=== PATIENT | female | born 1945 | race Caucasian/White ===

== ENCOUNTER 2016-10-04 13:27 | Inpatient (IN) | payer OTHER ==
[~2016-10-04] VITALS: Ht 172.7 cm; Wt 70.8 kg
[2016-10-04 13:35] VITALS: BP 113/80; PULSE 82; RESP 16; TEMP 97.2; O2SAT 97
--- NOTE | 2016-10-04 13:51 | NUR ---
ER at bedside examining patient.
--- NOTE | 2016-10-04 13:58 | NUR ---
MEDICATED WITH MOTRIN 600 MG FOR LEFT GROIN PAIN, SCALE 4/10.
[2016-10-04] MEDS ORDERED: IBUPROFEN 600 MG TABLET PO ONE (14:00)
--- NOTE | 2016-10-04 14:00 | NUR ---
TRANSPORTED TO RADIOLOGY DEPT.
--- NOTE | 2016-10-04 14:12 | NUR ---
RETURNED TO ROOM 6. COLD PACKS APPLIED TO LEFT GROIN AND RIGHT ANKLE.
--- NOTE | 2016-10-04 15:10 | NUR ---
PORTABLE CHEST XRAY DONE.
[2016-10-04] MEDS ORDERED: HYDROcodone/ACETAMIN 5-325 MG TAB (NORCO/ VICODIN) PO ONE (15:15)
[2016-10-04 15:17] LABS: BASOPHILS # (AUTO) 0.1 K/uL (0.0-0.2); BASOPHILS % (AUTO) 0.8 % (0.0-2.0); EOSINOPHILS # (AUTO) 0.2 K/uL (0.0-0.4); EOSINOPHILS % (AUTO) 1.7 % (0.0-4.0); HEMATOCRIT 40.8 % (36-48); HEMOGLOBIN 13.6 g/dL (12.0-16.0); LYMPHOCYTES # (AUTO) 1.7 K/uL (1.0-5.5); LYMPHOCYTES % (AUTO) 13.4 % (20.5-51.5); MEAN CORPUSCULAR HEMOGLOBIN 29 pg (27-31); MEAN CORPUSCULAR HGB CONC 34 % (32-36); MEAN CORPUSCULAR VOLUME 87 fL (79.0-98.0); MONOCYTES # (AUTO) 0.6 K/uL (0.0-1.0); MONOCYTES % (AUTO) 4.8 % (1.7-9.3); NEUTROPHILS # (AUTO) 10.1 K/uL (1.8-7.7); NEUTROPHILS % (AUTO) 79.3 % (40.0-70.0); PLATELET COUNT (AUTO) 173 K/uL (130-430); RED BLOOD CELL COUNT(AUTO) 4.67 MIL/uL (4.2-6.2); RED CELL DISTRIBUTION WIDTH 13.7 % (9.0-15.0); WHITE BLOOD COUNT (AUTO) 12.8 K/uL (4.8-10.8)
[2016-10-04 15:28] LABS: CALCIUM 8.8 mg/dL (8.4-11.0); CREATININE 1.11 mg/dL (0.55-1.30); POTASSIUM 3.7 mmol/L (3.5-5.1)
[2016-10-04 15:29] LABS: INR 0.9 (0.8-1.2); PROTHROMBIN TIME 9.9 SECS (9.5-12.5)
[2016-10-04] MEDS ORDERED: ONDANSETRON HCL 4 MG/2 ML VIAL IVP PRN (15:30)
[2016-10-04] MEDS ORDERED: MORPHINE 4 MG/ML INJ. SYRINGE IVP PRN (15:30)
[2016-10-04 15:32] LABS: ALBUMIN 3.7 g/dL (3.4-4.8); TOTAL BILIRUBIN 0.3 mg/dL (0.0-1.0); TOTAL PROTEIN, SERUM 6.8 g/dL (6.4-8.3)
--- NOTE | 2016-10-04 15:50 | NUR ---
# 20 gauge angiocath placed to LEFT A/C. Use of aseptic technique. Opsite placed over site. Blood return noted. Blood for lab drawn from site. Flushed with 10 cc of normal saline. No evidence of infiltration noted. Patient tolerated well.
[2016-10-04 16:09] LABS: BILIRUBIN,URINE NEGATIVE (NEGATIVE); CLARITY/URINE SL CLOUDY (CLEAR); COLOR,URINE YELLOW (YELLOW); GLUCOSE,URINE NEGATIVE (NEGATIVE); KETONES,URINE NEGATIVE (NEGATIVE); LEUKOCYTE ESTERASE ,URINE 1+ (NEGATIVE); NITRITE, URINE NEGATIVE (NEGATIVE); PROTEIN URINE NEGATIVE (NEGATIVE); UROBILINOGEN,URINE 0.2 (0.2-1.0)
--- NOTE | 2016-10-04 16:26 | NUR ---
ADMISSION NOTE Received patient from ER via chhaya, received report from ED RN. Patient admitted with diagnosis of LEFT HIP FRACTURE. Patient oriented to hospital routine, call light, toileting and safety-patient verbalized understanding.
[2016-10-04 16:33] VITALS: BP 110/69; PULSE 75; RESP 18; TEMP 97.5; O2SAT 98
--- NOTE | 2016-10-04 16:35 | NUR ---
TO [facility]. TRANSFERRED CARE TO JEB WILLSON. MOVED PT VIA BED TO ROOM 124-A. ALL PERSONAL BELONGINGS WITH PT.
--- NOTE | 2016-10-04 16:46 | NUR ---
CONSULT FOR DR. KEYES CALLED SPOKE TO ARA DIALED [phone]
--- NOTE | 2016-10-04 17:10 | NUR ---
pathology laboratory director notes Report given by admission nurse ANAMIKA. Assessment done and documented. Educated to call light and put with in reach. Educated on NPO diet. Bed in lowest position.
[2016-10-04 17:51] LABS: BLOOD, URINE TRACE (NEGATIVE)
[2016-10-04 17:55] LABS: BACTERIA,URINE MODERATE /HPF (None Seen); RBC,URINE 0-3 /HPF (0-3)
[2016-10-04 17:56] LABS: MUCUS,URINE None Seen /LPF (None Seen)
[2016-10-04] MEDS: 0.45% NACL 1,000 ML IV SCH (18:26)
--- NOTE | 2016-10-04 18:30 | NUR ---
RN closing note Patient connected to IV fluid ordered normal saline 0.45% at a rate of 100 ml as per order. Patient is awake and sitting in bed. Patient states pain is 1/10. Call light is with in reach. Educated on pain management.Bed is in the lowest position.
--- NOTE | 2016-10-04 18:58 | NUR ---
PAGED: SPOKE WITH DR VILLA AND VERIFIED MEDS ORDER FOR IV PAIN MEDS PARAMETER,MD TO PUT THE ORDERS IN.
--- NOTE | 2016-10-04 19:00 | NUR ---
Report received from Dayshift Nurse patient in bed visiting with family and friends. Patient denies pain or discomfort at this time will continue to monitor for changes.
[2016-10-04] MEDS ORDERED: MORPHINE 2 MG/ML INJ. SYRINGE IVP PRN (20:00)
[2016-10-04] MEDS: NORMAL SALINE 5 ML DISP.SYRIN IVF SCH (21:06)
[2016-10-04 21:08] VITALS: BP 122/69; PULSE 72; RESP 20; TEMP 98.5; O2SAT 93
[2016-10-04] MEDS: cefTRIAXone 1 GM in D5W 50 ML IV SCH (21:15)
--- NOTE | 2016-10-04 23:10 | NUR ---
RESUME CARE Received the report from RUPINDER Stuart. Patient resting on the bed. No acute distress. Respiration even and unlabored. AO x 4. Denied of pain. Skin warm and dry to touch. IV intact to LAC, no redness, no swelling, no drainage. On 1/2NS at 100ml/hr, infusing well. Re-educated patient to use call light when need help, and plan of care, verbally understanding. Safety measure maintained. Call light within reached. Bed in low position, side rails up. Will continue to monitor.
[2016-10-05] VITALS (7 sets, daily range): BP systolic 91–120; BP diastolic 59–73; PULSE 66–94; RESP 15–20; TEMP 96.4–99.4; O2SAT 92–96
[2016-10-05] MEDS: cefTRIAXone 1 GM IVPB PREMIX 50 ML IV ONE ×2 (00:49→00:50)
--- NOTE | 2016-10-05 01:25 | NUR ---
ROUND Patient resting on the bed with eyes closed. No acute distress. Respiration even and unlabored. Safety measure maintained. Bed in low position, side rails up. Call light within reached. Will continue to monitor.
--- NOTE | 2016-10-05 03:24 | NUR ---
ROUND Patient resting on the bed with eyes closed. No acute distress. Respiration even and unlabored. IVF infusing well. Safety measure maintained. Bed in low position, side rails up. Call light within reached. Continue to monitor.
--- NOTE | 2016-10-05 05:06 | NUR ---
ROUND Patient resting on the bed with eyes closed. No acute distress. Respiration even and unlabored. Safety measure maintained. Bed in low position, side rails up. Call light within reached. Continue to monitor.
[2016-10-05] MEDS: 0.45% NACL 1,000 ML IV SCH (05:51)
[2016-10-05] MEDS: NORMAL SALINE 5 ML DISP.SYRIN IVF SCH (05:52)
--- NOTE | 2016-10-05 06:47 | NUR ---
CLOSING NOTE Patient resting on the bed comfortable. No acute distress. Respiration even and unlabored. Denied of pain the whole shift. Skin warm and dry to touch. IV intact to LAC, no redness, no swelling, no drainage. IVF infusing well. All needs met. Hourly rounding during shift. Safety measure maintained. Call light within reached. Bed in low position, side rails up. Will endorse to morning shift nurse.
--- NOTE | 2016-10-05 07:20 | NUR ---
Initial notes: pt on bed resting. stable. i.v. access patent. discussed plan of care. safety measures in placed. call light within reach.
--- NOTE | 2016-10-05 08:15 | NUR ---
Angela rounds: Dr. Isidro seen the pt and explained the procedure for surgery. Pt's daughter at bedside.
[2016-10-05] MEDS: SIMVASTATIN 40 MG TABLET PO SCH (08:27)
[2016-10-05] MEDS: HYDROcodone/ACETAMIN 10-325 MG TAB PO PRN ×2 (08:27→10:26)
[2016-10-05] MEDS ORDERED: DIPH-TET-PERTUS Vaccine 0.5 ML VIAL (ADACEL) I.M. ONE (08:30)
--- NOTE | 2016-10-05 08:30 | NUR ---
PT RESTING IN BED. DENIES PAIN IN HIP AND STATES SHE HAS PAIN IN BACK. NORCO GIVEN AT [id number]
--- NOTE | 2016-10-05 09:00 | NUR ---
Consent: pt signed the consent for L hip pinning at 5:30p.m.
--- NOTE | 2016-10-05 09:00 | NUR ---
PAIN REASSESSMENT PATIENT DENIES PAIN IN HIP AND BACK. WILL CONTINUE TO MONITOR.
--- NOTE | 2016-10-05 09:21 | NUR ---
Nutrition Update Sergio Scale 18 noted. Pt admitted for R hip fracture. Diet: NPO BMI: 23.7 kg/m2 RD to follow per nutrition care standards.
--- NOTE | 2016-10-05 13:26 | NUR ---
ROUNDS PT RESTING IN BED WITH DAUGHTER AT THE BEDSIDE. ASSESSMENT COMPLETED. DENIES PAIN AND DISCOMFORT AT THIS TIME.
--- NOTE | 2016-10-05 14:30 | NUR ---
Telephone conversation with Angela: Called Dr. Lara for antibiotic treatment. No new order. Clarification of the L hip surgery, explained when he received phone call from Davion, reported to him R hip. No access of imaging result that time.
--- NOTE | 2016-10-05 16:00 | NUR ---
rounds: patient getting ready for the surgery. AUTO TRANSMISSION MECHANIC doing the CHG bath. V/S WNL.
--- NOTE | 2016-10-05 17:20 | NUR ---
Transfer to O.R.: pt transferred to O.R. for surgery.
[2016-10-05] MEDS ORDERED: KETOROLAC TROMETHAMINE 30 MG VIAL IVP ONE (17:46)
[2016-10-05] MEDS ORDERED: PROPOFOL 200MG/ 20ML VIAL (DIPRIVAN) IV ONE (17:46)
[2016-10-05] MEDS ORDERED: ONDANSETRON HCL 4 MG/2 ML VIAL IVP ONE (17:46)
[2016-10-05] MEDS ORDERED: CEFAZOLIN 2 GM IVPB PREMIX 50 ML IV ONE (17:46)
[2016-10-05] MEDS ORDERED: SEVOFLURANE 15 MIN GAS INH ONE (17:46)
[2016-10-05] MEDS ORDERED: fentaNYL CITRATE/PF 100 MCG/2 ML AMP IVP ONE (17:46)
[2016-10-05] MEDS ORDERED: LR 1,000 ML IV.SOLN IV ONE (17:46)
[2016-10-05] MEDS ORDERED: MIDAZOLAM HCL 5 MG/5 ML VIAL IVP ONE (17:46)
[2016-10-05] MEDS ORDERED: LR 1,000 ML IV SCH (18:51)
[2016-10-05] MEDS ORDERED: MEPERIDINE HCL/PF 25 MG/ML DISP.SYRIN IVP PRN ×2 (19:00)
[2016-10-05] MEDS ORDERED: HYDROmorphone 2 MG/ML VIAL IVP PRN ×2 (19:00)
[2016-10-05] MEDS ORDERED: HYDROmorphone 1 MG INJ. 1 MG/ML AMPUL IVP PRN (19:00)
[2016-10-05] MEDS ORDERED: ONDANSETRON HCL 4 MG/2 ML VIAL IVP PRN (19:00)
[2016-10-05] MEDS: D5/0.45 NS 1,000 ML IV SCH (19:40)
[2016-10-05] MEDS ORDERED: ACETAMINOPHEN 500 MG TABLET PO PRN (19:45)
--- NOTE | 2016-10-05 20:40 | NUR ---
PT. BACK FROM SURGERY RECEIVED PT. A/OX4, VITAL SIGNS STABLE, NO DISTRESS NOTED, DENIES PAIN, ENCOURAGED PT. TO USE INCENTIVE SPIROMETER 10X/HR WHILE AWAKE, PT. ABLE TO DEMONSTRATE PROPER USE UP TO 1999. NOTED WITH DRESSING TO LEFT HIP, DRESSING IS CLEAN, DRY, INTACT, NOTED WITH BILATERAL PLEXI PULSES IN PLACE. UPDATED WITH PLAN OF CARE, ENCOURAGED PT. TO USE CALL LIGHT FOR ASSISTANCE. BED IN LOWEST POSITION.
[2016-10-05] MEDS: SENNOSIDES 8.6 MG TABLET PO SCH (21:35)
[2016-10-05] MEDS: cefTRIAXone 1 GM in D5W 50 ML IV SCH (21:35)
--- NOTE | 2016-10-05 22:27 | NUR ---
VOIDED ASSISTED PT. TO USE BED RIVERA, PT. ABLE TO VOID LARGE AMOUNT OF CLEAR, YELLOW URINE. JOSÉ MIGUEL CARE DONE.
[2016-10-06] VITALS (7 sets, daily range): BP systolic 99–110; BP diastolic 51–64; PULSE 62–91; RESP 16–18; TEMP 97.1–99.1; O2SAT 92–96
--- NOTE | 2016-10-06 | NUR ---
RN ROUNDS PT. RESTING QUIETLY, VITAL SIGNS STABLE, NO DISTRESS NOTED, DENIES PAIN, REPOSITIONED WITH PILLOW SUPPORT, CALL LIGHT WITHIN REACH, WILL CONTINUE TO MONITOR.
--- NOTE | 2016-10-06 02:00 | NUR ---
RN ROUNDS PT. RESTING QUIETLY, VITAL SIGNS STABLE, NO DISTRESS NOTED, DENIES PAIN, REPOSITIONED WITH PILLOW SUPPORT, CALL LIGHT WITHIN REACH, WILL CONTINUE TO MONITOR.
--- NOTE | 2016-10-06 03:08 | NUR ---
VOIDED ASSISTED PT. TO USE BED RIVERA, PT. ABLE TO VOID LARGE AMOUNT OF CLEAR, YELLOW URINE. JOSÉ MIGUEL CARE DONE.
[2016-10-06] MEDS: D5/0.45 NS 1,000 ML IV SCH (03:40)
--- NOTE | 2016-10-06 05:00 | NUR ---
RN ROUNDS PT. SLEEPING, VITAL SIGNS STABLE, NO DISTRESS NOTED, NO S/S OF PAIN OR DISCOMFORT, REPOSITIONED WITH PILLOW SUPPORT, CALL LIGHT WITHIN REACH, BED IN LOWEST POSITION.
[2016-10-06 06:18] LABS: CALCIUM 7.6 mg/dL (8.4-11.0); CREATININE 0.88 mg/dL (0.55-1.30); POTASSIUM 4.1 mmol/L (3.5-5.1)
--- NOTE | 2016-10-06 06:27 | NUR ---
CLOSING NOTE PT. RESTING QUIETLY, VITAL SIGNS STABLE, NO DISTRESS NOTED, DRESSING IN PLACE TO LEFT HIP, CLEAN, DRY, INTACT. IV ACCESS PATENT AND BENIGN. CALL LIGHT WITHIN REACH, BED IN LOWEST POSITION.
[2016-10-06 06:31] LABS: BASOPHILS % (AUTO) 0.1 % (0.0-2.0); EOSINOPHILS % (AUTO) 0.1 % (0.0-4.0); HEMATOCRIT 39.5 % (36-48); HEMOGLOBIN 13.2 g/dL (12.0-16.0); LYMPHOCYTES # (AUTO) 0.7 K/uL (1.0-5.5); LYMPHOCYTES % (AUTO) 9.3 % (20.5-51.5); MEAN CORPUSCULAR HEMOGLOBIN 30 pg (27-31); MEAN CORPUSCULAR HGB CONC 33 % (32-36); MEAN CORPUSCULAR VOLUME 88 fL (79.0-98.0); MONOCYTES # (AUTO) 0.1 K/uL (0.0-1.0); MONOCYTES % (AUTO) 1.4 % (1.7-9.3); NEUTROPHILS # (AUTO) 6.6 K/uL (1.8-7.7); NEUTROPHILS % (AUTO) 89.1 % (40.0-70.0); PLATELET COUNT (AUTO) 137 K/uL (130-430); RED BLOOD CELL COUNT(AUTO) 4.48 MIL/uL (4.2-6.2); RED CELL DISTRIBUTION WIDTH 13.4 % (9.0-15.0); WHITE BLOOD COUNT (AUTO) 7.4 K/uL (4.8-10.8)
--- NOTE | 2016-10-06 08:15 | NUR ---
OPENING NOTE: RECEIVED REPORT FROM NIGHT NURSE. PATIENT IS RESTING COMFORTABLY IN BED. NO S/S OF DISTRESS OR SOB. PATIENT IS ALERT AND ORIENTED, ABLE TO EXPRESS NEEDS, AND ASK FOR ASSISTANCE. VITAL SIGNS WNL, ASSESSMENT COMPLETE. IV IS PATENT AND INFUSING. CALL LIGHT IN REACH, BED IN LOWEST POSITION, AND WILL CONTINUE TO MONITOR.
[2016-10-06] MEDS: ENOXAPARIN SODIUM 40 MG/0.4 ML SYRINGE SUBCUT SCH (09:00)
[2016-10-06] MEDS: SIMVASTATIN 40 MG TABLET PO SCH (09:00)
[2016-10-06] MEDS: ASCORBIC ACID 500 MG TABLET PO SCH ×2 (09:00→20:24)
[2016-10-06] MEDS: MILK OF MAGNESIA 30 ML UDC PO PRN ×2 (09:03→18:38)
--- NOTE | 2016-10-06 10:00 | NUR ---
NOTE: PATIENT IS RESTING COMFORTABLY IN CHAIR. NO S/S OF DISTRESS OR SOB. PATIENT WORKED WITH PHYSICAL THERAPY TO GET UP AND TRANSFER TO RECLINER CHAIR. PATIENT TOLERATED WELL. NO COMPLAINTS OR NEEDS AT THIS MOMENT. CALL LIGHT IN REACH, BED IN LOWEST POSITION, AND WILL CONTINUE TO MONITOR.
--- NOTE | 2016-10-06 11:15 | NUR ---
DISCHARGE PLANNING DC planning order to arrange home health. Faxed home health referral to [facility] [phone]. Faxed DME order for FWW to [phone]. Will follow up. Addendum: 10/06/16 at 1441 by Lidia Redmond DP Received call from Na in intake dept at [facility] case accepted. Na requested to be notified time patient will be discharged tomorrow. Na can be reached [phone] or Cell [phone]. Called [facility] still pending insurance verification. DCP will continue to follow up. Addendum: 10/06/16 at 1542 by Lidia Redmond DP Spoke with Moo in insurance verification at [facility] patient currently does not qualify for FWW due to open Workers Comp case DOI 02/06/12. ALEJA Bear made aware and will inform patient.
--- NOTE | 2016-10-06 12:00 | NUR ---
NOTE: PATIENT IS RESTING COMFORTABLY NO S/S OF DISTRESS OR SOB. PATIENT IS ALERT AND ORIENTED, ABLE TO EXPRESS NEEDS, AND ASK FOR ASSISTANCE. DAUGHTER IS AT BEDSIDE. CALL LIGHT IN REACH, BED IN LOWEST POSITION, AND WILL CONTINUE TO MONITOR.
[2016-10-06] MEDS: HYDROcodone/ACETAMIN 10-325 MG TAB PO PRN (13:27)
--- NOTE | 2016-10-06 13:50 | NUR ---
PHYSICAL THERAPY PATIENT WALKED WITH PHYSICAL THERAPY. WAS ABLE TO WALK TO THE ICU DOOR AND BACK. PATIENT COMPLAINT OF 4/10 PAIN, NORCO WAS ADMINISTERED. WILL CONTINUE TO MONITOR.
--- NOTE | 2016-10-06 14:08 | NUR ---
NOTE: PATIENT IS RESTING COMFORTABLY IN BED. NO S/S OF DISTRESS OR SOB. PATIENT IS ALERT AND ORIENTED, ABLE TO EXPRESS NEEDS, ASK FOR ASSISTANCE. DAUGHTER IS AT BEDSIDE. CALL LIGHT IN REACH, BED IN LOWEST POSITION, AND WILL CONTINUE TO MONITOR.
[2016-10-06] MEDS ORDERED: BISACODYL 10 MG/SUPPOSITORY RC PRN (14:15)
--- NOTE | 2016-10-06 16:06 | NUR ---
NOTE: PATIENT IS RESTING COMFORTABLY IN BED. NO S/S OF DISTRESS OR SOB. PATIENT IS ALERT AND ORIENTED, ABLE TO EXPRESS NEEDS, AND ASK FOR ASSISTANCE. DAUGHTER IS AT BEDSIDE. CALL LIGHT IN REACH, BED IN LOWEST POSITION, AND WILL CONTINUE TO MONITOR.
--- NOTE | 2016-10-06 18:20 | NUR ---
CLOSING NOTE: PATIENT IS RESTING COMFORTABLY IN BED. NO S/S OF DISTRESS OR SOB. PATIENT IS ALERT AND ORIENTED, ABLE TO EXPRESS NEEDS, AND ASK FOR ASSISTANCE. DAUGHTER IS AT BEDSIDE. PATIENT TOLERATING DIET WELL. ALL NEEDS ADDRESSED DURING THE SHIFT. CALL LIGHT IN REACH, BED IN LOWEST POSITION, AND WILL GIVE REPORT TO NIGHT NURSE.
--- NOTE | 2016-10-06 20:00 | NUR ---
INITIAL NOTES: RECEIVED REPORT FROM DAY SHIFT NURSE. PATIENT IS AWAKE,ALERT . COMFORTABLY IN BED. NO S/S OF DISTRESS OR SOB.VITALS ARE STABLE ; ON ROOM AIR ; ASSESSMENT COMPLETE. IV IS INTACT , NO S/S OF ANY INFILTRATION NOTES .DRESSING TO THE LEFT HIP IS CLEAN DRY AND INTACT , PEDAL PULSE ARE PALPABLE , PT IS ABLE TO ABDUCT AND ADDUCT HER TOES , DENIED ANY NUMBNESS OR TINGLING TO LEFT LEG .NOTICED BRUISE TO R HIP AND SCAB TO LEFT ELBOW. CALL LIGHT IN REACH, BED IN LOWEST POSITION,SAFETY AND FALL PRECAUTIONS IN PLACE; WILL CONTINUE TO MONITOR. Addendum: 10/07/16 at 0648 by Jc Al RN INCENTIVE SPIROMETRY IS UPTO 2000 ML, ENCOURAGED PT TO USE EVERY HR 10 X WHILE AWAKE
[2016-10-06] MEDS: cefTRIAXone 1 GM in D5W 50 ML IV SCH (20:24)
[2016-10-06] MEDS: SENNOSIDES 8.6 MG TABLET PO SCH (20:24)
--- NOTE | 2016-10-06 20:32 | NUR ---
MEDICATION: DUE MEDS GIVEN , IVPB ANTIBIOTIC IS INFUSING , NO S/S OF ANY ALLERGIC REACTION NOTED . PROVIDED SNACKS . WILL CONTINUE TO MONITOR.
--- NOTE | 2016-10-06 22:30 | NUR ---
RN NOTES: PT CALLED FOR ASSISTANCE , ASSISTED PT TO THE RESTROOM , USED WALKED, PT VOIDED WELL; ASSISTED PT BACK TO BED, PT IS COMFORTABLE .
--- NOTE | 2016-10-07 00:10 | NUR ---
RN ROUNDS: PT IS SLEEPING, NOT IN ANY ACUTE DISTRESS; WILL CONTINUE TO MONITOR.
--- NOTE | 2016-10-07 01:27 | NUR ---
RN ROUNDS: PT IS AWAKE, READING BOOK , PT STATED SHE IS NOT SLEEPY , ASKED PT WETHER SHE NEEDS ANY SLEEPING PILL, IF NEEDED WILL CALL MD , PT REFUSED TO TAKE SLEEPING PILL. PT STATED "I AM FINE , I SLEPT FOR COUPLE OF HOURS ". ENCOURAGED PT TO CALL IF SHE NEEDS ANY ASSISTANCE.
[2016-10-07 03:55] VITALS: BP 99/51; PULSE 80; RESP 20; TEMP 99; O2SAT 92
[2016-10-07] MEDS: HYDROcodone/ACETAMIN 10-325 MG TAB PO PRN (04:07)
--- NOTE | 2016-10-07 04:08 | NUR ---
PAIN Pt c/o 4/ 10 pain to the left hip after walking to the restroom , provided [place] as per order. WILL CONTINUE TO MONITOR.
--- NOTE | 2016-10-07 06:05 | NUR ---
RN ROUNDS: PT IS SLEEPING, NOT IN ANY ACUTE DISTRESS. WILL CONTINUE TO MONITOR
--- NOTE | 2016-10-07 06:46 | NUR ---
CLOSING NOTE: PATIENT IS SLEEPING COMFORTABLY IN BED. NO S/S OF DISTRESS OR SOB. ALL NEEDS ADDRESSED DURING THE SHIFT. CALL LIGHT IN REACH, BED IN LOWEST POSITION, WILL CONTINUE TO MONITOR AND WILL ENDORSE TO NEXT SHIFT NURSE.
[2016-10-07 08:10] VITALS: BP 122/67; PULSE 62; RESP 18; TEMP 98.4; O2SAT 96
--- NOTE | 2016-10-07 08:10 | NUR ---
OPENING NOTE: RECEIVED REPORT FROM [facility] NURSE. PATIENT IS RESTING COMFORTABLY IN BED. NO S/S OF DISTRESS OR SOB. PATIENT IS ALERT AND ORIENTED, ABLE TO EXPRESS NEEDS, AND ASK FOR ASSISTANCE. VITAL SIGNS WNL, ASSESSMENT COMPLETE. CALL LIGHT IN REACH, BED IN LOWEST POSITION, AND WILL CONTINUE TO MONITOR.
--- NOTE | 2016-10-07 08:26 | NUR ---
DR. STEPHY LOPEZ IN TO SEE PATIENT. DRESSING CHANGE DONE AT BEDSIDE. PRESCRIPTION FOR NORCO WAS GIVEN TO THE PATIENT. PATIENT TOLERATED DRESSING CHANGE WELL.
[2016-10-07] MEDS: SIMVASTATIN 40 MG TABLET PO SCH (09:26)
[2016-10-07] MEDS: ENOXAPARIN SODIUM 40 MG/0.4 ML SYRINGE SUBCUT SCH (09:26)
[2016-10-07] MEDS: ASCORBIC ACID 500 MG TABLET PO SCH (09:26)
--- NOTE | 2016-10-07 09:59 | NUR ---
DISCHARGE PLANNING DC order to arrange medication. Faxed order to [phone]. Will follow up. Addendum: 10/07/16 at 1311 by Lidia KEARNS spoke with Michael in intake dept at [facility] confirmed order was received and medication scheduled to be delivered to patient home tonight between 8-10pm. Met with patient at bedside who are agreeable with home health and medication that have been arranged. Patient requested for FWW and was made aware insurance not covered at this time. Patient was given [employer] number and called to make out of pocket payment. Spoke with Jalyn at [facility] who stated FWW will be delivered to patient hospital room before 5pm today. Charge Nurse Mary made aware. Patient had no other questions or concerns pertaining to discharge at this time.
--- NOTE | 2016-10-07 10:12 | NUR ---
DR. ALEXANDRA LOPEZ MAKING ROUNDS FOR DR. VILLA. PUT IN DISCHARGE ORDER AND WROTE PRESCRIPTION FOR LOVENOX 40 MG SUBQ.PATIENT MADE AWARE AND CALLED DAUGHTER. SHE WANTS TO WAIT FOR SECOND ROUND OF PHYSICAL THERAPY AND WILL THEN LEAVE. PATIENT IS STABLE, NO S/S OF DISTRESS OR SOB. NO NEEDS AT THE MOMENT. CALL LIGHT IN REACH, BED IN LOWEST POSITION, AND WILL CONTINUE TO MONITOR.
[2016-10-07 10:20] VITALS: BP_SYST 102; BP_SYST 122; BP_DIAS 61; BP_DIAS 67; PULSE 62; PULSE 72; RESP 18; TEMP 97.6; TEMP 98.4; O2SAT 96; O2SAT 97
[2016-10-07 11:13] VITALS: BP 102/61; PULSE 72; RESP 18; TEMP 97.6; O2SAT 97
--- NOTE | 2016-10-07 12:00 | NUR ---
NOTE: PATIENT IS RESTING COMFORTABLY IN BED. NO S/S OF DISTRESS OR SOB. PATIENT IS ALERT AND ORIENTED, ABLE TO EXPRESS NEEDS, AND ASK FOR ASSISTANCE. CALL LIGHT IN REACH, BED IN LOWEST POSITION, AND WILL CONTINUE TO MONITOR.
--- NOTE | 2016-10-07 14:00 | NUR ---
NOTE: PATIENT IS RESTING COMFORTABLY IN BED. NO S/S OF DISTRESS OR SOB. PATIENT IS ALERT AND ORIENTED, ABLE TO EXPRESS NEEDS, AND ASK FOR ASSISTANCE. NO NEEDS EXPRESSED AT THIS TIME. CALL LIGHT IN REACH, BED IN LOWEST POSITION, AND WILL CONTINUE TO MONITOR.
--- NOTE | 2016-10-07 15:06 | NUR ---
PHYSICAL THERAPY CO-SIGN The Physical Therapy Progress Notes documented by Magneto Specialist have been reviewed. I CONCUR WITH AM AND PM SENIOR COMMISSARY AGENT NOTE; CONT PER TX PLAN Reviewed/Co-Signed by: Sue Lauren PT Documentation Done by: JOURDAN RADER SENIOR COMMISSARY AGENT Addendum: 10/07/16 at 1507 by Sue Lauren PT Amended: Links added.
--- NOTE | 2016-10-07 16:00 | NUR ---
NOTE: PATIENT IS RESTING COMFORTABLY IN BED. NO S/S OF DISTRESS OR SOB. PATIENT IS ALERT AND ORIENTED, ABLE TO EXPRESS NEEDS, AND ASK FOR ASSISTANCE. NO NEEDS AT THIS TIME. PATIENT IS WAITING FOR DAUGHTER. CALL LIGHT IN REACH, BED IN LOWEST POSITION, AND WILL CONTINUE TO MONITOR.
[2016-10-07 16:15] VITALS: BP 110/60; PULSE 94; RESP 18; TEMP 97.4; O2SAT 98
--- NOTE | 2016-10-07 17:45 | NUR ---
D/C Patient Patient given medication reconciliation form and D/C instructions. Exit Care provided. Patient verbalized understanding. MD discussed with patient the results and treatment provided. Ambulatory with steady gait for discharge to home. Patient in stable condition, ID band removed. IV catheter removed, intact and dressing applied, no active bleeding. Rx of [place] given. Patient educated on pain management. All belongings sent with patient.
--- NOTE | 2016-10-11 14:02 | NUR ---
Discharge Follow Up Phone Call SEARCH ENGINE MARKETING STRATEGIST phoned patient, . Patient stated she was doing fine. She filled her prescription for [place] and is using it to manage her pain as directed. Patient has a follow up appointment with Denae Isidro on 10/12/16 and will call for a follow up with her PCP. Patient stated [facility] home health has been coming daily and she is very happy with their services. She received the Lovenox from [facility] and [facility] delivered her FWW prior to her leaving the hospital. Patient has her daughters staying with her 24 hours a day. Patient was very happy with her care at [facility]. Patient has no questions or concerns.
== END 2016-10-07 17:50 | disposition home health service (06) | DRG 482 ==
LOC: SED 13:29 → SMU 13:35
PROVIDERS: ADMIT Internal Medicine; ATTEND Internal Medicine
PROC: 0QS734Z Reposition Left Upper Femur with Internal Fixation Device, Percutaneous Approach (ICD-10-PCS; principal; 2016-10-05 17:30)
DX: S72.002A Fracture of unspecified part of neck of left femur, initial encounter for closed fracture (principal); M81.0 Age-related osteoporosis without current pathological fracture; E78.5 Hyperlipidemia, unspecified; R73.9 Hyperglycemia, unspecified; W01.0XXA Fall on same level from slipping, tripping and stumbling without subsequent striking against object, initial encounter; Y93.01 Activity, walking, marching and hiking; Y92.511 Restaurant or cafe as the place of occurrence of the external cause; Y99.8 Other external cause status; Z87.891 Personal history of nicotine dependence; Z90.49 Acquired absence of other specified parts of digestive tract; Z87.440 Personal history of urinary (tract) infections
CPT/HCPCS: 36415; 71010; 72170-TC; 73502; 76001; 80048; 80053; 81000-TC; 83880; 84484; 85025; 85610-TC; 87081; 87086; 90715; 93005; 94010; 97110-GP; 97116-GP; 97530-GP; 99285; C1713; J0690; J0696; J1650; J1885; J2250; J2405; J2704; J3010; J7060; J7120